=== PATIENT | male | born 1970 ===

== ENCOUNTER 2017-03-21 06:16 | Emergency (ER) | payer MEDICAID, OTHER ==
[2017-03-21 06:30] VITALS: RESP 18; TEMP 98.4
--- NOTE | 2017-03-21 07:35 | ED PDOC ---
HPI: Psych/Substance Abuse Time Seen by Provider: 03/21/17 07:13 Chief Complaint (Nursing): Psychiatric Evaluation Chief Complaint (Provider): Depression History Per: Patient History/Exam Limitations: no limitations Onset/Duration Of Symptoms: Days (weeks) Current Symptoms Are (Timing): Still Present Additional History Per: Patient Additional Complaint(s): Pt. states he is depressed. Stressed from stuff going on. Not suicidal or homicidal. No drugs. No pain, dyspnea, weakness. No fever. Did not do anything to harm self or others. No weakness. No injury. Had etoh last night. Past Medical History Reviewed: Nursing Documentation Vital Signs: Last Vital Signs Temp 98.4 F 03/21/17 06:28 Pulse 70 03/21/17 06:28 Resp 18 03/21/17 06:28 BP 112/49 L 03/21/17 06:28 Pulse Ox 98 03/21/17 06:28 - Medical History PMH: Depression Denies: HIV, HTN, Seizures, Sexually Transmitted Disease - Surgical History Surgical History: No Surg Hx - Family History Family History: States: Unknown Family Hx - Social History Current smoker - smoking cessation education provided: No Alcohol: Occasional Drugs: Denies - Immunization History Hx Tetanus Toxoid Vaccination: No Hx Influenza Vaccination: No Hx Pneumococcal Vaccination: No - Home Medications Home Medications: Ambulatory Orders Medication Instructions Recorded Bacitracin Ointment [Bacitracin] 1 applic TOP BID #1 tube 09/16/16 - Allergies Allergies/Adverse Reactions: Allergies Allergy/AdvReac Type Severity Reaction Status Date / Time No Known Allergies Allergy Verified 03/21/17 06:30 Review of Systems ROS Statement: Except As Marked, All Systems Reviewed And Found Negative Psych: Positive for: Depression Physical Exam - Reviewed Nursing Documentation Reviewed: Yes Vital Signs Reviewed: Yes - Physical Exam Appears: Positive for: Well, Non-toxic, No Acute Distress Head Exam: Positive for: ATRAUMATIC, NORMAL INSPECTION, NORMOCEPHALIC Skin: Positive for: Normal Color, Warm, DRY Eye Exam: Positive for: EOMI, Normal appearance, PERRL ENT: Positive for: Normal ENT Inspection Neck: Positive for: Normal, Painless ROM Cardiovascular/Chest: Positive for: Regular Rate, Rhythm Respiratory: Positive for: CNT, Normal Breath Sounds Gastrointestinal/Abdominal: Positive for: Normal Exam, Bowel Sounds, Soft. Negative for: Tenderness Back: Positive for: Normal Inspection. Negative for: L CVA Tenderness, R CVA Tenderness Extremity: Positive for: Normal ROM. Negative for: Tenderness, Pedal Edema Neurologic/Psych: Positive for: Alert, Oriented - ECG O2 Sat by Pulse Oximetry: 98 Pulse Ox Interpretation: Normal - Progress ED Course And Treament: 821: Stable. Crisis saw pt. Does not meet criteria for admit. Fu outpt. AAOx3. Pain free. Tolerated PO. Disposition - Clinical Impression Clinical Impression: Depression - Patient ED Disposition Is Patient to be Admitted: No Counseled Patient/Family Regarding: Diagnosis, Need For Followup - Disposition Referrals: [facility] [Outside] - 03/22/17 Disposition: Routine/Home Disposition Time: 08:22 Condition: STABLE Additional Instructions: Return if not better in 3 days. Instructions: Depression (ED) Forms: [facility] ED School/Work Excuse
[2017-03-21 08:21] VITALS: O2SAT 98
[2017-03-21 08:45] VITALS: BP 110/60; PULSE 88
== END 2017-03-21 09:39 | disposition home or self-care (01) ==
LOC: H.ER 06:16
DX: F32.9 Major depressive disorder, single episode, unspecified (principal)